=== PATIENT | female | born 1940 ===

== ENCOUNTER 2022-08-10 12:54 | Outpatient (CLI) | payer OTHER ==
[2022-08-10] MEDS ORDERED: Iopamidol 370 76% 100 ML VIAL ONE (14:19)
== END 2022-08-10 12:55 | disposition home or self-care (01) ==
LOC: CT 12:54
PROVIDERS: ATTEND Internal Medicine Cardiovascular Disease
DX: E07.89 Other specified disorders of thyroid (principal); R09.89 Other specified symptoms and signs involving the circulatory and respiratory systems; I65.23 Occlusion and stenosis of bilateral carotid arteries
CPT/HCPCS: 70498; 82565; Q9967